=== PATIENT | female | born 1980 | race Caucasian/White ===

== ENCOUNTER 2018-09-18 18:43 | Outpatient (REF) | payer OTHER, SELFPAY ==
[2018-09-18 22:09] LABS: ALT 28 U/L (12-78); AST 16 U/L (15-37); Albumin 3.4 g/dL (3.4-5.0); Alkaline Phosphatase 64 U/L (46-116); Anion Gap 10.8 mmol/L (3-11); BUN 13 mg/dL (7-18); Bilirubin, Total 0.3 mg/dL (0.2-1.0); CO2 25.2 mmol/L (21.0-32.0); CREATININE 1.01 mg/dL (0.55-1.02); Calcium 9.3 mg/dL (8.5-10.1); Chloride 106 mmol/L (98-107); Cholesterol 210 mg/dL (50-200); Glucose 93 mg/dL (70-100); HDL Cholesterol 39 mg/dL (40-60); LDL CHOLESTEROL 140 mg/dL (<100); Potassium 4.1 mmol/L (3.5-5.1); Sodium 142 mmol/L (136-145); TSH 2.61 uIU/mL (0.358-3.74); Total Protein 7.3 g/dL (6.4-8.2); Triglyceride 199 mg/dL (30-150)
[2018-09-18 22:54] LABS: FREE T4 0.88 ng/dL (0.76-1.46)
== END 2018-09-18 19:03 ==
LOC: NCHCN 18:43
PROVIDERS: PCP Family Medicine; Visit Provider Family Medicine
DX: I10 Essential (primary) hypertension (principal)
CPT/HCPCS: 80053; 80061; 83721; 84439; 84443

== ENCOUNTER 2019-04-23 09:12 | Outpatient (REF) | payer OTHER, SELFPAY ==
[2019-04-23 13:03] LABS: Abs Immature Grans 0.01 k/cumm (0.0-0.09); Absolute Basophil Count 0.02 k/cumm (0.0-0.2); Absolute Eosinophil Count 0.15 k/cumm (0.0-0.7); Absolute Lymphocyte Count 2.84 k/cumm (1.2-3.4); Absolute Monocyte Count 0.42 k/cumm (0.11-0.7); Absolute Neutrophil Count 4.55 k/cumm (1.2-6.7); Basophils % 0.3; Eosinophils % 1.9; HCT 40.7 % (36.0-46.0); HGB 13.4 g/dL (12.0-15.5); Immature Grans % 0.1; Lymphocytes % 35.5; Mean Corp. HGB Concentration 32.9 g/dL (32.0-36.0); Mean Corpuscular Hemoglobin 30.5 pg (27.0-33.0); Mean Corpuscular Volume 92.5 fL (80-95); Mean Platelet Volume 9.7 fL (8.0-11.0); Monocytes % 5.3; Neutrophils % 56.9; Platelet Count 296 x1000/uL (130-400); RBC Distribution Width 13.6 % (11.7-14.6); White Blood Cell Count 7.99 k/cumm (4.4-10.8)
[2019-04-23 15:13] LABS: Calculated LDL 124 mg/dL; Cholesterol 196 mg/dL (50-200); HDL Cholesterol 39 mg/dL (40-60); Triglyceride 166 mg/dL (30-150); Vitamin B12 340 pg/mL (193-986)
[2019-04-23 17:29] LABS: Vitamin D 25 Total 19.9 ng/ml (30-100)
[2019-04-23 18:33] LABS: Hemoglobin A1C 5.3 % (4.5-6.2)
== END 2019-04-23 09:32 ==
LOC: NCHCN 09:12
PROVIDERS: PCP Family Medicine; Visit Provider Nurse Practitioner Family
DX: F25.9 Schizoaffective disorder, unspecified (principal)
CPT/HCPCS: 80061; 82306; 82607; 83036; 85025

== ENCOUNTER 2020-05-19 03:44 | Outpatient (CLI) | payer OTHER, SELFPAY ==
--- NOTE | 2020-05-19 14:00 | NS.NUTBLAN_ITS ---
Loree was referred to me for Medical Nutrition Therapy for obesity. Most recent A1C: 5.5% (04/23/20), BMI 46. PMH: PCOS, Vit D Def. Loree reports following a well balanced diet with focus on complex carbs, lean protein and vegetables. She and her walk 2 miles 4-5 times per week and walked 10 miles the other day. She reports taking MVI and Vit. D. She takes control for PCOS, has never taken metformin. She reports that she lost 100 lbs , about 10 years ago and her lowest adult weight was 160 lbs. We reviewed her diet and focused on ways for her to reduce her calorie intake and increase exercise to help with weight loss. Initial goal weight is 250 lbs in next 6 months. We discussed meal plans that focus on lower carb intake to no more than 100 grams carbs daily, 60-80 g protein and several servings of non starchy vegetable daily. It was recommended that she log her foods into [employer] and to follow up with typewriter assembler in 30 days. Loree was hesitant to make another appt but was engaged in education. I encouraged her to reach out with questions/concerns or if she needed support in her weight loss efforts. Plan: Loree will follow [id number] kcal meal plan with 80-100 grams carbs, 60-80 g protein in 3 meals and 2 snacks, Loree will walk 10 miles per week or find other execises during the winter to increase her metabolic rage. No follow up planned at this time.
== END 2020-05-19 04:04 ==
PROVIDERS: PCP Family Medicine; Visit Provider Dietitian, Registered
DX: E66.8 Other obesity (principal); Z71.3 Dietary counseling and surveillance
CPT/HCPCS: 97802

== ENCOUNTER 2021-04-05 08:40 | Outpatient (REF) | payer OTHER, SELFPAY ==
[2021-04-05 15:52] LABS: HCT 43.8 % (36.0-46.0); HGB 13.8 g/dL (11.2-15.7); MCH 29.7 pg (27.0-33.0); MCHC 31.5 % (32.0-36.0); MCV 94.2 fL (80-95); MPV 9.2 fL (8.0-11.0); Platelet Count 331 10^3/uL (130-400); RBC 4.65 10^6/uL (3.93-5.22); RDW 13.1 % (11.7-14.6); RDW-SD 45.1 fL
[2021-04-05 15:55] LABS: ALT 23 U/L (14-59); AST 15 U/L (15-37); Albumin 3.7 g/dL (3.4-5.0); Alkaline Phosphatase 62 U/L (46-116); Anion Gap 13.1 mmol/L (3-11); BUN 12 mg/dL (7-18); Bilirubin, Total 0.4 mg/dL (0.2-1.0); CO2 22.9 mmol/L (21.0-32.0); Calculated LDL 117 mg/dL (<100); Chloride 104 mmol/L (98-107); Cholesterol 201 mg/dL (<200); Glucose 83 mg/dL (74-106); HDL Cholesterol 44 mg/dL (40-60); Potassium 4.1 mmol/L (3.5-5.1); Sodium 140 mmol/L (136-145); Total Protein 7.3 g/dL (6.4-8.2); Triglyceride 200 mg/dL (<150)
== END 2021-04-05 08:41 | disposition home or self-care (01) ==
LOC: NCHCN 08:40
PROVIDERS: PCP Family Medicine; Referring Provider Family Medicine; Visit Provider Family Medicine
DX: E78.1 Pure hyperglyceridemia (principal); I10 Essential (primary) hypertension; E66.01 Morbid (severe) obesity due to excess calories; E55.9 Vitamin D deficiency, unspecified
CPT/HCPCS: 80053; 80061; 82306; 85027

== ENCOUNTER 2022-05-14 18:26 | Outpatient (REF) | payer OTHER, SELFPAY ==
[2022-05-14 21:01] LABS: Abs Immature Grans 0.04 10^3/uL (0.0-0.06); Absolute Basophil Count 0.03 10^3/uL (0.0-0.2); Absolute Eosinophil Count 0.05 10^3/uL (0.0-0.7); Absolute Lymphocyte Count 2.47 10^3/uL (1.2-3.4); Absolute Neutrophil Count 5.02 10^3/uL (1.2-6.7); Basophils % 0.4; Eosinophils % 0.6; HCT 40.2 % (36.0-46.0); HGB 13.3 g/dL (11.2-15.7); Immature Grans % 0.5; Lymphocytes % 29.7; MCH 30.3 pg (27.0-33.0); MCHC 33.1 % (32.0-36.0); MCV 92 fL (80-95); MPV 9.5 fL (8.0-11.0); Monocytes % 8.4; Neutrophils % 60.4; Platelet Count 256 10^3/uL (130-400); RBC 4.39 10^6/uL (3.93-5.22); RDW 13.3 % (11.7-14.6); RDW-SD 45.9 fL; WBC 8.31 10^3/uL (4.4-10.8)
[2022-05-14 21:09] LABS: ALT 24 U/L (14-59); AST 26 U/L (15-37); Albumin 3.6 g/dL (3.4-5.0); Alkaline Phosphatase 58 U/L (46-116); Anion Gap 11.2 mmol/L (3-11); BUN 13 mg/dL (7-18); Bilirubin, Total 0.2 mg/dL (0.2-1.0); CO2 22.8 mmol/L (21.0-32.0); CREATININE 0.8 mg/dL (0.55-1.02); Calcium 9.1 mg/dL (8.5-10.1); Chloride 106 mmol/L (98-107); Glucose 87 mg/dL (74-106); NT-proBNP 122 pg/mL (<300); Potassium 4.2 mmol/L (3.5-5.1); Sodium 140 mmol/L (136-145); Total Protein 7.8 g/dL (6.4-8.2)
[2022-05-14 21:48] LABS: D-Dimer 2107 ng/mlFEU (<500)
== END 2022-05-14 18:27 | disposition home or self-care (01) ==
LOC: LBN 18:26
PROVIDERS: PCP Family Medicine; Visit Provider Nurse Practitioner Family
DX: R06.01 Orthopnea (principal); R25.2 Cramp and spasm; R21 Rash and other nonspecific skin eruption; M79.605 Pain in left leg
CPT/HCPCS: 80053; 83880; 85025; 85379

== ENCOUNTER → 2023-06-14 01:23 | Outpatient (CLI) | payer OTHER, SELFPAY ==
--- NOTE | 2023-06-14 12:45 | DI.MAMMO_ITS ---
Exam(s) MAMMO SCREENING EXAM: MAMMO SCREENING CLINICAL HISTORY: SCREENING, BASELINE, Z12.31. TECHNIQUE: Bilateral full field digital CC and MLO mammographic images were obtained with 3D tomosyn thesis and utilizing computer aided detection (CAD). COMPARISON: None. This is a baseline mammogram on this 42-year-old FINDINGS: There are no CAD designations. There are no spiculated masses nor malignant appearing microcalcification groups. There is no significant architectural distortion nor skin thickening-retraction. IMPRESSION: No radiographic evidence of malignancy. BI-RADS Category 1 - Negative Breast Density - Category B - Scattered areas of fibroglandular density Breast density Category C or D implies that the patient has dense breast tissue. Dense breast tissue can make it harder to find cancer on a mammogram. Dense breast tissue is also associated with an incr eased risk of breast cancer. This information about the result of the mammogram report was provided to the patient to raise their awareness. Use this report when you speak with the patient about their risks for breast cancer, which includes their family history. At that time, you may recommend additional screening tests (Ultrasoun d or MRI) as these tests may add significant information. A negative radiographic report should not delay biopsy if a dominant or clinically suspicious mass is present. Up to ten percent of cancers are not identified on mammography. A negative report may reinforce clinical impression. Adenosis and dense breasts may obscure an underlying neoplasm. False positive reports average 6 to 10%. Patient will receive a letter notifying them of these results.
== END ==
PROVIDERS: PCP Family Medicine; Visit Provider Family Medicine
DX: Z12.31 Encounter for screening mammogram for malignant neoplasm of breast (principal)
CPT/HCPCS: 77063; 77067

== ENCOUNTER 2023-07-23 10:33 | Emergency (ER) | payer OTHER, SELFPAY ==
[2023-07-23 10:37] VITALS: BP 150/107; PULSE 96; RESP 18; TEMP 36.2; O2SAT 98
--- NOTE | 2023-07-23 11:19 | W.ED.GENAD ---
Discharge Plan Disposition Patient Disposition: Home Condition: Stable Discharge Details Clinical Impression: Sciatica Primary Care Provider: Priyanka Oliva ED Provider: Yariel Downs Home Meds and New Rx's Prescriptions: New ketorolac 10 mg tablet 10 mg PO Q6H 5 Days Qty: 20 0RF cyclobenzaprine 10 mg tablet 10 mg PO TID PRN (Reason: sciatica) Qty: 30 0RF lidocaine [Lidoderm] 5 % adhesive patch,medicated 1 patch topical DAILY Qty: 15 0RF Rx Instructions: leave on most painful area for up to 12 hrs Continued cholecalciferol (vitamin D3) 5,000 unit capsule 50,000 unit PO QWEEK lisinopril 30 mg tablet 30 mg PO DAILY aripiprazole [Abilify] 20 mg tablet 20 mg PO DAILY aspirin 81 mg tablet,delayed release (DR/EC) 81 mg PO DAILY Patient Comments: TAKE ONE TABLET BY MOUTH EVERY DAY hydroxychloroquine 200 mg tablet 200 mg PO DAILY Patient Comments: TAKE ONE TABLET BY MOUTH EVERY DAY Discharge Instructions Instructions: Cyclobenzaprine (By mouth), Ketorolac (By mouth), Lidocaine Patch (On the skin), Sciatica (ED) Additional Instructions: You were seen in the emergency department for the pain originating at your left SI joint traveling down your left leg. This is likely sciatica. Please take the prescribed ketorolac or Toradol for the next 5 days 4 times per day, then switch back to ibuprofen in its place. I have also sent a prescription for skeletal muscle relaxer called cyclobenzaprine to your pharmacy as well as a prescription for lidocaine patches, placed a lidocaine patch on the area of pain in your left lower back for 12 hours each day. You may alternate heat and ice to the area, the only long-term curative treatment for sciatica is often physical therapy and gentle massage and strengthening your core muscles. Please return to the emergency department for any increasing pain with fever, paralysis of the left leg, urinary retention or bowel incontinence or numbness in the groin. Referrals: [facility] [Provider Group] Priyanka Oliva [Primary Care Provider] - Medical Decision Making This dictation utilizes [id number] dictation software and may contain unedited grammatical errors. 42 y/o F presents to ED today with a chief complaint of L lumbar back pain spreading down L LE, denies history sciatica, concern for clot. Do not see any auto-immune disorder in patients history that would cause blood clots, habitually picks at her skin. Patients' medical history: schizoaffective disroder. Family and social history: noncontributory. Pertinent exam findings / vital signs include no unilateral leg swelling, L lumbar paraspinal tenderness, NV intact L LE. Differential / pathologies of concern include sciatica, not DVT. Diagnostic studies of: -D-dimer, negative. Interventions of: -Rx's for toradol, cyclobenzaprine, lidoderm. ED Course/Assessment/Plan: Counseled the patient on low likelihood of DVT and higher likelihood of sciatic etiology, prescribed Toradol cyclobenzaprine and Lidoderm to treat her likely sciatica, there is no evidence of cauda equina, counseled the patient on following up with physical therapy and provided office contact information, counseled on negative D-dimer ruling out blood clot. Findings not consistent with DVT, Cauda Equina, NV Compromise. Disposition of Sciatica. Patient verbalized understanding of the plan and return to ED criteria and engaged in shared decision making. Medical Records Medical records reviewed: Yes I reviewed the patient's medical records. Lab Data Lab results reviewed: Yes I reviewed the patient's lab results. Labs: Laboratory Tests Range/Units 07/23/23 11:00 D-Dimer (<500) ng/mlFEU 422 HPI General Date/Time Provider Initiated Documentation: 07/23/23 10:45. HPI Narrative: 42 year-old female presents to ED today by POV/ambulating with a chief complaint of L lumbar back pain, with spread down the posterior L LE to the knee with onset noted Saturday, patient states her Outboard Motor Assembler wanted her to get checked because she has an auto-immune condition that causes clots. Quality described as flowing pain from the lumbar back, occasionally bilateral, no radiation to urinary retention, bowel incontinence, groin numbness, fever, unilateral leg swelling- patient does have skin lesions on LEs but habiutally picks at her skin. Severity is described as 5-6/10. Palliating factors include nothing specific. Provoking factors include nothing specific. Events leading up to the incident/Associated Symptoms: Patient denies history of sciatica. Patient not anticoagulated. Related Data Home Medications Medication Instructions Recorded Confirmed aripiprazole 20 mg tablet (Abilify) 20 mg PO DAILY 04/10/19 07/23/23 lisinopril 30 mg tablet 30 mg PO DAILY 04/10/19 07/23/23 cholecalciferol (vitamin D3) 125 50,000 unit PO QWEEK 05/14/19 07/23/23 mcg (5,000 unit) capsule aspirin 81 mg tablet,delayed 81 mg PO DAILY 07/23/23 07/23/23 release cyclobenzaprine 10 mg tablet 10 mg PO TID PRN sciatica #30 tabs 07/23/23 hydroxychloroquine 200 mg tablet 200 mg PO DAILY 07/23/23 07/23/23 ketorolac 10 mg tablet 10 mg PO Q6H 5 days #20 tabs 07/23/23 lidocaine 5 % topical patch 1 patch topical DAILY #15 ea 07/23/23 (Lidoderm) Previous Rx's Medication Instructions Recorded cyclobenzaprine 10 mg tablet 10 mg PO TID PRN sciatica #30 tabs 07/23/23 ketorolac 10 mg tablet 10 mg PO Q6H 5 days #20 tabs 07/23/23 lidocaine 5 % topical patch 1 patch topical DAILY #15 ea 07/23/23 (Lidoderm) Allergies Allergy/AdvReac Type Severity Reaction Status Date / Time latex Allergy Verified 07/23/23 10:41 General Stated Complaint: Vascular BRANDON: 3 Review of Systems All systems reviewed & are unremarkable except as noted in HPI and below PFSH All Active Problems (Updated 07/23/23 @ 12:20 by RASHMI Ortiz) Sciatica (Acute) Mixed action and resting tremor (Acute) Secondary Parkinson disease (Acute) Medical History (Updated 07/23/23 @ 12:20 by RASHMI Ortiz) Hyperlipidemia Polycystic ovary Hirsutism Latex allergy Schizoaffective disorder Obesity Neck pain Headache Vitamin D deficiency Picking own skin Hypertension Surgical History S/P tube myringotomy S/P cholecystectomy S/P tonsillectomy and adenoidectomy Family History Father Diabetes Hypertension Heart disease Mother Diabetes Social History Smoking/Tobacco Use Status: Never Smoking risk assessment performed?: Yes Alcohol Intake: never Drug use: Never Substance use type: does not use Household members: spouse Housing: house current occupation: Volunteer Seatbelt use: always Do you feel safe at home: Yes Do you feel safe in your relationship?: Yes Exam Narrative Exam Narrative: GENERAL APPEARANCE: Well-nourished, non-toxic, awake and alert, atraumatic, no acute distress. SKIN: Warm, pink, dry, intact, without rashes/lesions/ulcerations. HEAD: Normocephalic, atraumatic, normal hair distribution for gender/age. EYES: Pupils PERRLA, EOMs intact without nystagmus, normal conjunctiva, no exudates on lids/lashes. ENT: Nares patent, no circumoral cyanosis, no facial swelling NECK: Supple, trachea midline, painless cervical ROM. LUNGS/CHEST: Non-labored respirations, normal A/P diameter, symmetrical expansion, no chest wall deformity HEART (CV/PV): Regular rate and rhythm without murmur, no peripheral edema, no JVD. ABDOMEN: Soft, non-distended, no guarding, no tenderness. MSK: Normal ROM, no swelling/deformity to bilateral UEs or LEs, moving all extremities without weakness, no cyanosis, spine midline without tenderness, normal curvature. L lumbar paraspinal tenderness, strength 5/5 in L LE, sensation intact, no midline vertebral TTP/creitus/step-offs NEURO: Mental Status AAOx4 - alert to person, place, time, events No facial droop, no forehead involvement. Motor: No focal weakness - strength 5/5 in bilateral UEs and LEs, proximal and distal, symmetric. Sensory: sensation intact to light touch globally. Gait normal: patient ambulated without ataxia into ED room. PSYCH: euthymic, cooperative, pleasant, appropriate speech Course Vital Signs Vital signs: Vital Signs Temperature 36.2 C L 07/23/23 10:37 Pulse 96 H 07/23/23 10:37 Respiratory Rate 18 07/23/23 10:37 Blood Pressure 150/107 H 07/23/23 10:37 Pulse Oximetry 98 07/23/23 10:37 Temperature 36.2 C L 07/23/23 10:37 Temperature Source Temporal Artery Scan 07/23/23 10:37 Pulse 96 H 07/23/23 10:37 Respiratory Rate 18 07/23/23 10:37 Respiratory Effort Normal 07/23/23 11:14 Respiratory Depth Normal 07/23/23 11:14 Blood Pressure 150/107 H 07/23/23 10:37 Blood Pressure Position Sitting 07/23/23 10:37 Pulse Oximetry 98 07/23/23 10:37 Oxygen Delivery Method Room Air 07/23/23 10:37 Oxygen Flow Rate 0 07/23/23 10:37 Pain Level 8 07/23/23 10:37
[2023-07-23 11:58] LABS: D-Dimer 422 ng/mlFEU (<500)
== END 2023-07-23 12:36 | disposition home or self-care (01) ==
PROVIDERS: Emergency Provider Physician Assistant; PCP Family Medicine
DX: M54.32 Sciatica, left side (principal); M54.50 Low back pain, unspecified; G21.11 Neuroleptic induced parkinsonism
CPT/HCPCS: 99283; 85379

== ENCOUNTER 2024-01-09 12:41 | Outpatient (REF) | payer OTHER, SELFPAY ==
[2024-01-09 15:04] LABS: HCT 41.8 % (36.0-46.0); HGB 13.6 g/dL (11.2-15.7); MCH 30.2 pg (27.0-33.0); MCHC 32.5 % (32.0-36.0); MCV 93 fL (80-95); MPV 9.5 fL (8.0-11.0); Platelet Count 314 10^3/uL (130-400); RBC 4.51 10^6/uL (3.93-5.22); RDW-SD 43.9 fL; WBC 10.13 10^3/uL (4.4-10.8)
== END 2024-01-09 12:42 | disposition home or self-care (01) ==
LOC: NCHCN 12:41
PROVIDERS: PCP Family Medicine; Visit Provider Family Medicine
DX: R21 Rash and other nonspecific skin eruption (principal)
CPT/HCPCS: 85027

== ENCOUNTER 2024-04-08 18:12 | Outpatient (REF) | payer OTHER, SELFPAY ==
[2024-04-08 21:15] LABS: Hemoglobin A1C 5.1 % (<5.7)
[2024-04-08 22:40] LABS: ALT 40 U/L (14-59); AST 25 U/L (15-37); Albumin 3.7 g/dL (3.4-5.0); Alkaline Phosphatase 78 U/L (46-116); Anion Gap 8.5 mmol/L (3-11); BUN 11 mg/dL (7-18); CO2 27.5 mmol/L (21.0-32.0); CREATININE 0.9 mg/dL (0.55-1.02); Calcium 8.5 mg/dL (8.5-10.1); Calculated LDL 92 mg/dL (<100); Chloride 104 mmol/L (98-107); Cholesterol 168 mg/dL (<200); Estimated GFR 80.34 (mL/min/1.73m2); Glucose 79 mg/dL (74-106); HDL Cholesterol 49 mg/dL (40-60); Sodium 140 mmol/L (136-145); Total Protein 7.2 g/dL (6.4-8.2); Triglyceride 139 mg/dL (<150); Vitamin D 25 Total 46.5 ng/mL (30-100)
== END 2024-04-08 18:13 | disposition home or self-care (01) ==
LOC: NCHCN 18:12
PROVIDERS: PCP Family Medicine; Visit Provider Family Medicine
DX: E55.9 Vitamin D deficiency, unspecified (principal); E66.8 Other obesity; Z13.1 Encounter for screening for diabetes mellitus; Z68.43 Body mass index [BMI] 50.0-59.9, adult
CPT/HCPCS: 80053; 80061; 82306; 83036

== ENCOUNTER 2024-06-17 01:39 | Outpatient (CLI) | payer OTHER, SELFPAY ==
--- NOTE | 2024-06-17 | DI.MAMMO_ITS ---
Exam(s) MAMMO SCREENING EXAM: MAMMO SCREENING CLINICAL HISTORY: Screening, Z12.31. TECHNIQUE: Bilateral full field digital CC and MLO mammographic images were obtained with 3D tomosyn thesis and utilizing computer aided detection (CAD). COMPARISON: Prior baseline mammogram May 2023 was reviewed FINDINGS: There has been no significant change in the appearance and distribution of the fibroglandular tissue. Right breast there is no unchanged benign-appearing nodule located 8 cm in from the nipple the CC vie w measuring 10 by 4 mm and probably benign intramammary lymph. In the right breast there is also a well-defined benign-appearing 4 millimeter nodule located 9 cm in from the nipple on CC view now evident. Spot compression recommended. No malignant-appearing microcalcification groups in either breast. There is no significant architectural distortion nor skin thickening-retraction. IMPRESSION: 1. No radiographic evidence of malignancy in left breast. 2. 2 small benign-appearing right breast nodules, as described above. Spot compression right breast views and right breast ultrasound recommended. BI-RADS Category 0 - Incomplete: Need additional imaging evaluation Breast Density - Category B - Scattered areas of fibroglandular density Breast density Category C or D implies that the patient has dense breast tissue. Dense breast tissue can make it harder to find cancer on a mammogram. Dense breast tissue is also associated with an incr eased risk of breast cancer. This information about the result of the mammogram report was provided to the patient to raise their awareness. Use this report when you speak with the patient about their risks for breast cancer, which includes their family history. At that time, you may recommend additional screening tests (Ultrasoun d or MRI) as these tests may add significant information. A negative radiographic report should not delay biopsy if a dominant or clinically suspicious mass is present. Up to ten percent of cancers are not identified on mammography. A negative report may reinforce clinical impression. Adenosis and dense breasts may obscure an underlying neoplasm. False positive reports average 6 to 10%. Patient will receive a letter notifying them of these results.
== END 2024-06-17 01:59 ==
LOC: DI 01:39
PROVIDERS: PCP Family Medicine; Visit Provider Family Medicine
DX: Z12.31 Encounter for screening mammogram for malignant neoplasm of breast (principal); D24.1 Benign neoplasm of right breast; R92.323 Mammographic fibroglandular density, bilateral breasts
CPT/HCPCS: 77063; 77067

== ENCOUNTER 2024-06-23 01:25 | Outpatient (CLI) | payer OTHER, SELFPAY ==
--- NOTE | 2024-06-23 | DI.MAMMO_ITS ---
Exam(s) MG MAMMO SCREEN CALL BACK UNI EXAM: MAMMO SCREEN CALL BACK UNI CLINICAL HISTORY: 2 small benign-appearing rt breast nodules. TECHNIQUE: Craniocaudal and mediolateral oblique Full Field Digital Mammography views of the right b reast with Computer Aided Diagnosis. COMPARISON: No exams were available for comparison FINDINGS: Mammography/Tomosynthesis: Masses/Architectural Distortion: There is an area of nodularity which persists on the right MLO view which is unchanged compared to prior examinations. No suspicious nodules are seen. No areas of arch itectural distortion are present. Microcalcifictions: No suspicious pleomorphic-type are seen. Skin Thickening/Nipple Retraction: None. IMPRESSION: 1. No evidence of malignancy is noted. 2. Unless there is more urgent need, follow-up screening mammography is recommended, as per [place] [employer] guidelines. 3. The findings were discussed with the patient on the date of the examination. BI-RADS Category 2 - Benign Findings Breast Density - Category B - Scattered areas of fibroglandular density Breast density Category C or D implies that the patient has dense breast tissue. Dense breast tissue can make it harder to find cancer on a mammogram. Dense breast tissue is also associated with an incr eased risk of breast cancer. This information about the result of the mammogram report was provided to the patient to raise their awareness. Use this report when you speak with the patient about their risks for breast cancer, which includes their family history. At that time, you may recommend additional screening tests (Ultrasoun d or MRI) as these tests may add significant information. A negative radiographic report should not delay biopsy if a dominant or clinically suspicious mass is present. Up to ten percent of cancers are not identified on mammography. A negative report may reinforce clinical impression. Adenosis and dense breasts may obscure an underlying neoplasm. False positive reports average 6 to 10%. Patient will receive a letter notifying them of these results.
== END 2024-06-23 01:45 ==
LOC: DI 01:25
PROVIDERS: PCP Family Medicine; Visit Provider Family Medicine
DX: D24.1 Benign neoplasm of right breast (principal); R92.323 Mammographic fibroglandular density, bilateral breasts; Z12.31 Encounter for screening mammogram for malignant neoplasm of breast
CPT/HCPCS: 77063; 77067

== ENCOUNTER 2025-04-07 15:10 | Outpatient (REF) | payer OTHER, SELFPAY ==
[2025-04-07 14:50] LABS: HCT 41.2 % (36.0-46.0); HGB 13.7 g/dL (11.2-15.7); MCH 30.5 pg (27.0-33.0); MCHC 33.3 % (32.0-36.0); MCV 92 fL (80-95); MPV 9.8 fL (8.0-11.0); Platelet Count 252 10^3/uL (130-400); RBC 4.49 10^6/uL (3.93-5.22); RDW 13.2 % (11.7-14.6); RDW-SD 44.7 fL; WBC 10.07 10^3/uL (4.4-10.8)
[2025-04-07 15:22] LABS: ALT 26 U/L (14-59); AST 19 U/L (15-37); Albumin 3.8 g/dL (3.4-5.0); Alkaline Phosphatase 79 U/L (46-116); Anion Gap 10.0 mmol/L (3-11); BUN 12 mg/dL (7-18); Bilirubin, Total 0.4 mg/dL (0.2-1.0); CO2 26.0 mmol/L (21.0-32.0); Calcium 9.1 mg/dL (8.5-10.1); Calculated LDL 115 mg/dL (<100); Chloride 103 mmol/L (98-107); Cholesterol 190 mg/dL (<200); Estimated GFR 107.95 (mL/min/1.73m2); Glucose 74 mg/dL (74-106); HDL Cholesterol 50 mg/dL (>or=50); Potassium 4.2 mmol/L (3.5-5.1); Sodium 139 mmol/L (136-145); Total Protein 7.3 g/dL (6.4-8.2); Triglyceride 125 mg/dL (<150)
== END 2025-04-07 15:11 | disposition home or self-care (01) ==
LOC: NCHCN 15:10
PROVIDERS: PCP Family Medicine; Visit Provider Family Medicine
DX: I10 Essential (primary) hypertension (principal); E78.6 Lipoprotein deficiency; Z00.00 Encounter for general adult medical examination without abnormal findings
CPT/HCPCS: 80053; 80061; 85027

== ENCOUNTER 2025-05-18 15:28 | Outpatient (REF) | payer OTHER, SELFPAY | END 2025-05-18 15:29 | disposition home or self-care (01) | LOC: LBN 15:28 | PROVIDERS: PCP Family Medicine; Visit Provider Obstetrics & Gynecology | DX: Z12.4 Encounter for screening for malignant neoplasm of cervix (principal) | CPT/HCPCS: 88142; 87624 ==

== ENCOUNTER 2025-06-08 10:40 | Outpatient (CLI) | payer OTHER, SELFPAY ==
[2025-05-07 12:55] LABS: HCT 39.2 % (36.0-46.0); HGB 13.1 g/dL (11.2-15.7); MCH 31.0 pg (27.0-33.0); MCHC 33.4 % (32.0-36.0); MCV 93 fL (80-95); MPV 8.9 fL (8.0-11.0); Platelet Count 265 10^3/uL (130-400); RBC 4.22 10^6/uL (3.93-5.22); RDW 13.2 % (11.7-14.6); RDW-SD 45.1 fL; WBC 9.77 10^3/uL (4.4-10.8)
[2025-05-07 13:32] LABS: TSH (W/Ref FT4) 3.58 uIU/mL (0.36-3.74)
[2025-05-10 10:48] LABS: FSH 1.7 mIU/mL (See Note)
[2025-05-11 15:21] LABS: Estradiol, Mass Spectrometry 193 pg/mL
== END 2025-06-08 10:41 | disposition home or self-care (01) ==
LOC: LBO 10:40
PROVIDERS: PCP Family Medicine; Visit Provider Obstetrics & Gynecology
DX: N91.2 Amenorrhea, unspecified (principal); N91.1 Secondary amenorrhea
CPT/HCPCS: 36415; 84403; 85027; 82670; 82679; 83001; 84146; 84443

== ENCOUNTER → 2025-06-18 02:43 | Outpatient (CLI) | payer OTHER, SELFPAY ==
--- NOTE | 2025-06-18 | DI.MAMMO_ITS ---
Exam(s) MAMMO SCREENING EXAM: MAMMO SCREENING CLINICAL HISTORY: SCREENING, Z12.31 TECHNIQUE: Mammograms were interpreted according to the usual protocol including computer analysis with CAD system, tomosynthesis and C-view imaging. COMPARISON: 2022 and 2023 FINDINGS: The breasts are composed of scattered fibroglandular densities, Breast Density category B. No suspicious masses or suspicious microcalcifications are seen. No skin thickening or abnormal axillary lymph nodes are seen. There has been no significant change from prior exams. IMPRESSION: BI-RADS Category 1, Negative mammogram Yearly screening mammography is recommended. Breast Density - Category B - There are scattered areas of fibroglandular density. Breast density Category C or D implies that the patient has dense breast tissue. Dense breast tissue can make it harder to find cancer on a mammogram. Dense breast tissue is also associated with an increased risk of breast cancer. This information about the result of the mammogram report was provided to the patient to raise their awareness. Use this report when you speak with the patient about their risks for breast cancer, which includes their family history. At that time, you may recommend additional screening tests (Ultrasound or MRI) as these tests may add significant information. A negative radiographic report should not delay biopsy if a dominant or clinically suspicious mass is present. Up to ten percent of cancers are not identified on mammography. A negative report may reinforce clinical impression. Adenosis and dense breasts may obscure an underlying neoplasm. False positive reports average 6 to 10%. Patient will receive a letter notifying them of these results.
== END ==
LOC: DI 02:43
PROVIDERS: PCP Family Medicine; Visit Provider Family Medicine
DX: Z12.31 Encounter for screening mammogram for malignant neoplasm of breast (principal); R92.323 Mammographic fibroglandular density, bilateral breasts
CPT/HCPCS: 77063; 77067

== ENCOUNTER 2025-07-09 09:43 | Day surgery (SDC) | payer OTHER, SELFPAY ==
--- NOTE | 2025-07-08 22:03 | W.PM.DSUDISC ---
Date of service: 07/09/25 Discharge Plan Disposition Patient Disposition: Home Condition: Good Discharge Details Reason For Visit: Screening colonoscopy Attending Provider: Neal Coughlin Primary Care Provider: Priyanka Oliva Home Meds and New Rx's Prescriptions: Continued cholecalciferol (vitamin D3) 5,000 unit capsule 50,000 unit PO QWEEK escitalopram oxalate 10 mg tablet 10 mg PO DAILY lisinopril 30 mg tablet 30 mg PO DAILY aripiprazole [Abilify] 20 mg tablet 20 mg PO DAILY hydroxyzine HCl 25 mg tablet 25 mg PO TID PRN hydroxychloroquine 200 mg tablet 400 mg PO DAILY Patient Comments: TAKE ONE TABLET BY MOUTH EVERY DAY aspirin 81 mg tablet,delayed release (DR/EC) 325 mg PO DAILY Patient Comments: TAKE ONE TABLET BY MOUTH EVERY DAY Discontinued bisacodyl 5 mg tablet,delayed release (DR/EC) 5 mg PO ONCE Qty: 4 0RF Rx Instructions: Per Colonoscopy bowel prep instructions polyethylene glycol 3350 17 gram/dose powder 238 g PO ONCE Qty: 238 0RF Rx Instructions: For Colonoscopy bowel prep, as directed by office Discharge Instructions Instructions: Colon polyps Additional Instructions: Loree, is very nice meeting you today, and I hope you feel well after the colonoscopy. Things went very smoothly. I did find, and removed 3 polyps today. These are small, and to the naked eye they do not appear to be anything to worry about. Colon polyps, different types, and I will send all 3 of these to the pathologist for them to review. The report from that will be available in about a week or 2, once my office has that information, we will be able to offer better recommendations regarding the timing of future colonoscopies. Certainly, we will let you know once that is available. If you need anything in the meantime, please do not hesitate to ask. 1. If tolerated, consume a soft, low fiber diet for 1-2 days. [address] Do not drive, drink alcohol, operate machinery, make critical decisions, or do activities that require coordination or balance for 24 hours. 3. Because air was put into your colon during the procedure, expelling air from your rectum (passing gas or farting) is normal. 4. You may not have a bowel movement for 1-3 days because of the colonoscopy prep. This is normal. 5. Go directly to the emergency room if you notice any of the following: Develop chills (warm to touch), or if you have a thermometer and your temperature is above 101 Difficulty breathing or difficultly swallowing Persistent vomiting Severe abdominal pain, other than gas cramps Severe chest pain Black, tarry stools Any bleeding ? exceeding one tablespoon 6. Call your physician if the site where your intravenous was started becomes red, swollen, painful, and warm to touch. 7. Your physician has reviewed your pre-procedure medications. Please continue to take those medications as previously ordered. You will be given specific information/education regarding any changes to your medications before leaving. Stand Alone Forms: Anesthesia Discharge Inst., [facility] Ame[facility] ([facility]), Portal Information Activity:: Activity as Tolerated Diet:: As Tolerated Discharge Orders Discharge Orders: Discharge Order (Routine); Ordered 07/08/25 Ordered By: Neal Coughlin DS: Diagnosis Discharge Diagnosis (1) Encounter for screening colonoscopy: Status: Acute Asessment and Plan: Follow-up on polypectomy results
--- NOTE | 2025-07-08 22:04 | COLE_ITS ---
Date of service: 07/09/25 Time of Service: 12:33 Colonoscopy Report Date of procedure: 07/09/25 Pre-op diagnosis general: Screening colonoscopy Post-op diagnosis procedure note: other (Colorectal polyps) Procedure: Colonoscopy Surgeon: Neal Coughlin Anesthesia Type: General:No Airway Estimated blood loss (mL): 10 Pathology: other (0.25 cm pedunculated rectal polyp, 0.25 cm flat polyp at 20 cm, 0.25 cm flat polyp at 50 cm) Complications: None Disposition: same day Indications: Loree is a 44-year-old woman who needs her first screening colonoscopy Prep: Miralax/Dulcolax Procedure Start Time: 11:47 Procedure End Time: 12:06 Retraction Time: 9 Findings: 0.25 cm pedunculated rectal polyp, 0.25 cm flat polyp at 20 cm, 0.25 cm flat polyp at 50 cm Procedure Description: After the induction of anesthesia, and with the patient in left lateral decubitus position, I began by performing an external anorectal exam.? Perineum and skin were normal, as was the anal verge.? There was no evidence of external hemorrhoids.? Next, I performed a digital rectal exam.? This was normal.? Next, I advanced a colonoscope into the rectal vault.? I performed retroflexion.? In the lower portion of the rectal vault was a 0.25 cm slightly pedunculated polyp. Narrowband imaging was used to assist with the polyp analysis. Some of the features appeared consistent with an adenomatous polyp, so this was removed using cold forceps. There was minimal bleeding.? Using irrigation, I then advanced the colonoscope beyond the rectal folds. Around 20 cm past the anal verge was another flat polyp. This had features more consistent with a hyper plastic polyp, but to be safe, this was removed in piecemeal with cold forceps. There was minimal bleeding from this site. I continued advancing through the sigmoid colon before advancing towards the cecum.?The scope was noted to be in the cecum by identification of the ileocecal valve and appendiceal orifice.? I then began withdrawing the colonoscope using repeated irrigation as necessary for full evaluation of the colonic mucosa. ?Another 0.25 cm flat polyp was found around 50 cm past the anal verge. This was also removed with cold forceps without any worrisome bleeding. Once the scope was withdrawn to the level of the rectum, great care was taken to examine portions of the rectal folds.? Finally, the scope was withdrawn and the patient was brought to the same-day surgery recovery unit as the anesthetic wore off. ?The findings and instructions were shared with the patient prior to discharge. [place] Bowel Prep [place] Bowel Prep Right Colon: 3 Left Colon: 3 Transverse Colon: 3 Total Score: 9
[2025-07-09 10:09] VITALS: BP 143/81; PULSE 79; RESP 16; TEMP 36.4; O2SAT 99
[2025-07-09] MEDS: Lactated Ringers 1,000 ML 80 ML IV (10:40)
--- NOTE | 2025-07-09 11:31 | W.ANESPRE ---
General Info Date of Service Date Performed: 07/09/25 Height: 5 ft 4 in Weight: 141.2 kg Body Mass Index (BMI): 53.4 Surgical Procedure: Operation Date: 07/09/25 11:20 Proposed Procedure Side Surgeon p Colonoscopy Neal Coughlin MD Actual Procedure Side Surgeon p Colonoscopy Not Applicable Neal Coughlin MD Meds Allergies and Home Medications Allergies Allergy/AdvReac Type Severity Reaction Status Date / Time latex Allergy Mild burnning Verified 07/09/25 10:05 Home Medication ?Medication ?Instructions ?Recorded aripiprazole 20 mg tablet (Abilify) 20 mg PO DAILY 04/10/19 lisinopril 30 mg tablet 30 mg PO DAILY 04/10/19 cholecalciferol (vitamin D3) 125 50,000 unit PO QWEEK 05/14/19 mcg (5,000 unit) capsule escitalopram oxalate 10 mg tablet 10 mg PO DAILY 05/18/25 hydroxychloroquine 200 mg tablet 400 mg PO DAILY 06/17/25 hydroxyzine HCl 25 mg tablet 25 mg PO TID PRN 06/18/25 aspirin 81 mg tablet,delayed 325 mg PO DAILY 07/02/25 release Current Visit Medications: Current Medications Generic Name Dose Route Start Last Admin Trade Name Freq PRN Reason Stop Dose Admin Ringer's Solution 1,000 mls @ 80 mls/hr 07/09/25 06:00 07/09/25 10:40 IV 07/09/25 23:59 80 mls/hr INFUSION SILVIA Administration Sodium Chloride 0 ml 07/09/25 06:00 Normal Saline Flush 10 Ml Syr IV 07/09/25 23:59 PRN PRN Sodium Chloride 0 ml 07/09/25 06:00 Normal Saline 10 Ml Vial IJ 07/09/25 23:59 DIRECTED PRN Sterile Water 0 ml 07/09/25 06:00 Water,Injection,Sterile 10 Ml Vial IJ 07/09/25 23:59 DIRECTED PRN PFSH Active Problems Active Problems: Problem Status Onset Code Encounter for screening colonoscopy Acute Z12.11 Pure hyperglyceridemia Acute E78.1 Lipoprotein deficiency disorder Acute E78.6 Insomnia Acute G47.00 Self-injurious behavior Acute Z72.89 Irritability and anger Acute R45.4 Picking own skin Acute L98.1 Hypertension Chronic I10 Hyperlipidemia Acute E78.5 Hirsutism Acute L68.0 Latex allergy Acute Z91.040 Schizoaffective disorder Acute F25.9 Obesity Chronic E66.9 Vitamin D deficiency Acute E55.9 Antiphospholipid syndrome Acute D68.61 Conduct disorder Acute F91.9 Tremor Acute R25.1 Irregular menses Acute N92.6 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 Secondary Parkinson disease Acute G21.9 Medical History Medical History Amnesia Lichen simplex chronicus Polycystic ovary Neck pain Headache Surgical History Surgical History S/P tube myringotomy (~2002) S/P cholecystectomy (~1999) S/P tonsillectomy and adenoidectomy (~2002) Tobacco Smoking/Tobacco Use Status: Never Passive smoking exposure: Yes Alcohol Alcohol Intake: never Substance Use Substance use: Never Substance use type: does not use Prental History History 0 Para Hx # Term Pregnancies Multiple births Hx # Pregnancies Ectopic pregnancies AB induced Hx Number of Living Children AB spontaneous Vital Signs and Lab Results Vital Signs Most Recent Vital Signs in EMR: Most Recent Vital Signs Temp Pulse Resp BP Pulse Ox 36.4 C L 79 16 143/81 H 99 07/09/25 10:09 07/09/25 10:09 07/09/25 10:09 07/09/25 10:09 07/09/25 10:09 Point of Care Results Point of Care Results: POC- Test(urine) Negative 07/09/25 10:26 Anesthesia Assessment and Plan Anesthesia History Personal History: No History of Anesthesia Complications Family History: No Family History of Anesthesia Complications Exercise Tolerance Exercise Tolerance: Metabolic Equivalents>4 Pertinent Negatives Pertinent Negatives: No Symptoms of GERD, No Major Cardiovascular Symptoms or Complaints and No Major Pulmonary Symptoms or Complaints Cardiac & Pulmonary Exam Cardiac Exam: Normal S1/S2 Heart Sounds Pulmonary Exam: Clear Bilateral Breath Sounds Implantable Cardiac Device Does patient have a Pacemaker or an ICD?: No Airway Exam Known Difficult Airway: No Mallampati Class: 2 Mouth Opening: Normal (> 3cm) Thyromental Distance: Greater than 3 cm Neck Range of Motion: Full ROM Neck Circumference: Thick Teeth Condition: Normal Dentition ASA Classification ASA Score: ASA 3 Emergency Case?: No NPO Status NPO Status: NPO Clears >2 hours, Solids >8 hours Status Status: Negative HCG Anesthesia Plan Resuscitation Status: Full Code Anesthesia Technique: General Anesthesia Airway Planned: Natural Airway Monitors Used: Standard Monitors
[2025-07-09 11:32] VITALS: BMI 53.4
--- NOTE | 2025-07-09 11:49 | BOWEL_PTH ---
PATIENT: Loree Barragan LOC: [facility] U#:[id number] AGE/SX: 44/F ROOM: RE07/09/[address]: Neal Coughlin MD : 1980 BED: DIS: 07/09/2025 SPEC #: [id number] RECD: 07/09/25 12:40 STATUS: OLGA RECarmelita #: [id number] TRICIA: 07/09/25 11:[address]: Neal Coughlin DEPT: Surgical Specimen RECD BY: Ruthy Weinstein ENTERED: 07/09/25 12:45 SP TYPE: Bowel OTHR DR: Priyanka Oliva Tissues: 1 - BIOPSY BOWEL 2 - BIOPSY BOWEL 3 - BIOPSY BOWEL Procedures: GROSS AND MICRO LEVEL 4 Comments: [id number]
[2025-07-09 12:12] VITALS: BP 117/69; PULSE 69; RESP 16; TEMP 36.2; O2SAT 100
--- NOTE | 2025-07-09 12:26 | W.ANESPOSTOP ---
Postoperative Evaluation Date, Time and Location Date Performed: 07/09/25 Time Performed: 12:15 Patient Location: Day [facility] Unit Vital Signs Most Recent Imported Vital Signs: Most Recent Vital Signs Temp Pulse Resp BP Pulse Ox 36.2 C L 69 16 117/69 100 07/09/25 12:12 07/09/25 12:12 07/09/25 12:12 07/09/25 12:12 07/09/25 12:12 Pain Score Most Recent Pain Score: Most Recent Pain Score Pain Level 0 07/09/25 12:12 Assessment Mental Status: Awake (Alert & Oriented to Patient Baseline) Airway and Respiratory Function: Patent airway with normal (patient baseline) respiratory exam Cardiovascular Function: Hemodynamically Stable Hydration Status: Adequately Hydrated Nausea & Vomiting: No Nausea or Vomiting Pain: Pt. Denies Any Pain Peripheral Nerve Block: Patient did not receive a nerve block
[2025-07-09 12:41] VITALS: BP 136/92; PULSE 71; RESP 20; TEMP 36.2; O2SAT 100
== END 2025-07-09 13:01 | disposition home or self-care (01) ==
LOC: SUR 09:44
PROVIDERS: PCP Family Medicine; Visit Provider Surgery
PROC: 0DJD8ZZ Inspection of Lower Intestinal Tract, Via Natural or Artificial Opening Endoscopic (ICD-10-PCS; CPT 45378; principal; 2025-07-09 11:15)
DX: Z12.11 Encounter for screening for malignant neoplasm of colon (principal); K62.1 Rectal polyp; K63.5 Polyp of colon; G21.9 Secondary parkinsonism, unspecified; I10 Essential (primary) hypertension
CPT/HCPCS: 45380; 81025; 88305; J2704